=== PATIENT | female | born 1995 | race American Indian/Alaskan Native ===

== ENCOUNTER 2018-12-22 19:36 | Emergency (ER) | payer SELFPAY ==
--- NOTE | 2018-12-22 20:20 | Event Note ---
ED Screening Note Date of service: 12/22/18 Time: 20:17 ED Screening Note: This is a 23 y.o. F. that presents to the ER with abnormal uterine bleeding for 2 months. Reports menorrhagia and passing clots. PMH of iron deficiency anemia. Reports a sharp pain earlier today when she passed a clot. This initial assessment/diagnostic orders/clinical plan/treatment(s) is/are subject to change based on patients health status, clinical progression and re- assessment by fellow clinical providers in the ED. Further treatment and workup at subsequent clinical providers discretion. Patient/guardian urged not to elope from the ED as their condition may be serious if not clinically assessed and man aged. Initial orders include: Labs
[2018-12-22 21:34] LABS: Basophils # (Auto) 0.1 K/mm3 (0.0-0.1); Basophils % (Auto) 1.2 % (0.0-1.8); Eosinophils # (Auto) 0.4 K/mm3 (0.0-0.4); Eosinophils % (Auto) 4.2 % (0.0-4.3); Hematocrit 40.1 % (30.3-42.9); Hemoglobin 13.4 gm/dl (10.1-14.3); Lymphocytes # (Auto) 3.4 K/mm3 (1.2-5.4); Lymphocytes % (Auto) 32.2 % (13.4-35.0); Mean Corpuscular HGB Conc 33 % (30-34); Mean Corpuscular Volume 90 fl (79-97); Monocytes # (Auto) 0.8 K/mm3 (0.0-0.8); Monocytes % (Auto) 7.2 % (0.0-7.3); Platelet Count 309 K/mm3 (140-440); Red Blood Count 4.46 M/mm3 (3.65-5.03); Red Cell Distribution Width 13.5 % (13.2-15.2)
[2018-12-22] MEDS ORDERED: IBUPROFEN 600 MG TAB PO ONE (21:59)
[2018-12-22 22:00] LABS: Bilirubin,Urine NEG (Negative); Blood,Urine MOD (Negative); Color,Urine Straw (Yellow); Protein,Urine <15 mg/dL mg/dL (Negative); Urobilinogen,Urine < 2.0 mg/dL (<2.0)
--- NOTE | 2018-12-22 22:02 | Emergency Department Report ---
ED Female HPI - General Chief complaint: Vaginal Bleeding Stated complaint: BLOOD CLOTS,,ABD PAIN,HEADACHE Time Seen by Provider: 12/22/18 20:17 Source: patient Mode of arrival: Ambulatory Limitations: No Limitations - History of Present Illness Initial comments: 23-year-old -[place] female presents to the emergency room for vaginal bleeding 2 months. Reports the headache and intermittent sharp pains lasting 30 seconds to 1 minute. Reports pain is worse with standing and walking and better with sitting. Patient reports that she she using averages 6 tampons a day. She denies any vaginal discharges she's having too much vaginal bleeding. Patient states that she's having blood clots. She reports her pain is 8 out of 10 when it comes. Patient denies any palpitations or feeling like her heart is racing. She denies any change of vision. She does admit to dizziness which makes her sit down at times while at work. She denies any syncopal moments. MD Complaint: vaginal bleeding Onset/Timin -: month(s) Location: suprapubic Radiation: non-radiating Severity: severe Severity scale (0 -10): 8 Quality: sharp Consistency: intermittent Improves with: other (sitting) Worsens with: medication Are you Now?: No Associated Symptoms: headaches - Related Data Previous Rx's Medication Instructions Recorded Last Taken Type Hyoscyamine Subl [Levsin Sl] 0.125 mg SL Q4HR PRN #14 tablet 12/22/12 Unknown Rx Promethazine [Phenergan] 25 mg PO Q6H PRN #14 tablet 12/22/12 Unknown Rx medroxyPROGESTERone ACETATE 10 mg PO QDAY 10 Days #10 tablet 12/22/18 Unknown Rx [Provera] Allergies Allergy/AdvReac Type Severity Reaction Status Date / Time No Known Allergies Allergy Unverified 12/22/12 16:59 ED Review of Systems ROS: Stated complaint: BLOOD CLOTS,,ABD PAIN,HEADACHE Other details as noted in HPI Comment: All other systems reviewed and negative Gastrointestinal: abdominal pain Neurological: headache ED Past Medical Hx - Past Medical History Previous Medical History?: Yes Additional medical history: Anemia - Surgical History Past Surgical History?: No - Social History Smoking Status: Never Smoker Substance Use Type: None - Medications Home Medications: Home Medications Medication Instructions Recorded Confirmed Last Taken Type Hyoscyamine Subl [Levsin Sl] 0.125 mg SL Q4HR PRN #14 tablet 12/22/12 Unknown Rx Promethazine [Phenergan] 25 mg PO Q6H PRN #14 tablet 12/22/12 Unknown Rx medroxyPROGESTERone ACETATE 10 mg PO QDAY 10 Days #10 tablet 12/22/18 Unknown Rx [Provera] ED Physical Exam - General Limitations: No Limitations General appearance: alert, in no apparent distress - Head Head exam: Present: atraumatic, normocephalic - Eye Eye exam: Present: normal appearance - ENT ENT exam: Present: mucous membranes moist - Neck Neck exam: Present: normal inspection - Respiratory Respiratory exam: Present: normal lung sounds bilaterally. Absent: respiratory distress - Cardiovascular Cardiovascular Exam: Present: regular rate, normal rhythm. Absent: systolic murmur, diastolic murmur, rubs, gallop - GI/Abdominal GI/Abdominal exam: Present: soft, normal bowel sounds. Absent: distended, tenderness - Rectal Rectal exam: Present: deferred - Extremities Exam Extremities exam: Present: full ROM - Back Exam Back exam: Present: normal inspection, full ROM - Neurological Exam Neurological exam: Present: alert, oriented X3, normal gait - Expanded Neurological Exam Expanded Cranial nerves: EOM's Intact: Normal, Gag Reflex: Normal, Tongue Deviation: Normal, Nystagmus: Normal, Facial Sensation: Normal, Facial Palsy with Forehead Movement: Normal, Facial Palsy without Forehead Movement: Normal Cerebellar function: Finger to Nose: Normal, Heel to Hernandez: Normal, Romberg: Normal Upper motor neuron: Charanjit Neglect: Normal, Pronator Drift: Normal, Babinski Sign: Normal, Sensory Extinction: Normal Sensory exam: Upper Extremity Light Touch: Normal, Upper Extremity Pin Prick: Normal, Upper Extremity Temperature: Normal, UE 2 Point Discrimination: Normal, Lower Extremity Light Touch: Normal, Lower Extremity Pin Prick: Normal, Lower Extremity Temperature: Normal, LE 2 Point Discrimination: Normal Motor strength exam: RUE: 4, LUE: 4, RLE: 4, LLE: 4 Best Eye Response (Renata): (4) open spontaneously Best Motor Response (Renata): (6) obeys commands Best Verbal Response (Renata): (5) oriented Renata Total: 15 - Psychiatric Psychiatric exam: Present: normal affect, normal mood - Skin Skin exam: Present: warm, dry, intact, normal color. Absent: rash ED Course Vital Signs 12/22/18 12/22/18 19:41 22:12 Temperature 98.4 F Pulse Rate 98 H Respiratory 18 18 Rate Blood Pressure 157/111 O2 Sat by Pulse 99 Oximetry ED Medical Decision Making - Lab Data Result diagrams: 12/22/18 20:45 - Medical Decision Making 23-year-old -[place] female presents to the emergency room for vaginal bleeding 2 months. Reports the headache and intermittent sharp pains lasting 30 seconds to 1 minute. Reports pain is worse with standing and walking and better with sitting. Patient reports that she she using averages 6 tampons a day. She denies any vaginal discharges she's having too much vaginal bleeding. Patient states that she's having blood clots. She reports her pain is 8 out of 10 when it comes. Patient denies any palpitations or feeling like her heart is racing. She denies any change of vision. She does admit to dizziness which makes her sit down at times while at work. She denies any syncopal moments. Patient labs are stable for any anemia or acute blood loss. Patient has a negative test. Critical care attestation.: If time is entered above; I have spent that time in minutes in the direct care of this critically ill patient, excluding procedure time. ED Disposition Clinical Impression: Abnormal uterine bleeding (AUB) Disposition: DC-01 TO HOME OR SELFCARE Is pt being admited?: No Does the pt Need Aspirin: No Condition: Stable Instructions: Menorrhagia (ED) Additional Instructions: No signs of anemia. Prescriptions: medroxyPROGESTERone ACETATE [Provera] 10 mg PO QDAY 10 Days #10 tablet Referrals: [facility] [Primary Care Provider] - 3-5 Days [facility] [Provider Group] - 3-5 Days [facility] [Provider Group] - 3-5 Days [facility] [Provider Group] - 3-5 Days
[2018-12-22 22:03] LABS: RBC,Urine > 182.0 /HPF (0.0-6.0)
[2018-12-22 23:28] VITALS: BP 132/88
== END 2018-12-22 23:30 | disposition home or self-care (01) ==
LOC: ED 19:36
DX: N93.9 Abnormal uterine and vaginal bleeding, unspecified (principal); D64.9 Anemia, unspecified
CPT/HCPCS: 36415; 81001; 84703; 85025; 87086